=== PATIENT | male | born 1950 | race Caucasian/White ===

== ENCOUNTER 2017-10-23 10:37 | Inpatient (IN) | payer OTHER ==
[~2017-10-23] VITALS: Ht 182.9 cm; Wt 111.9 kg
[~2017-10-23 10:37] MED LIST: AMLODIPINE-BEN1 EACH PO; ASPIRIN325 MG PO; CIMETIDINE400 MG PO; Cipro PO; DORYX50 MG PO; ELIQUIS5 MG PO; METOPROLOL TART50 MG PO; Percocet 5/325,Endoc PO; TAGAMET300 MG PO; VICODIN,LORT1 TABLET PO; Vicodin,Norco 5/325 PO
[2017-10-23 11:07] LABS: HEMATOCRIT 46.7 % (38.0-50.0); HEMOGLOBIN 16.5 G/DL (12.5-16.6); MCH 32.7 PG (29.0-34.0); MCHC 35.3 G/DL (30.0-36.0); MCV 92.7 FL (86-99); PLATELET COUNT 61 K/uL (156-360); RBC DIS.WIDTH-CV 12.3 % (11.8-14.6); RED BLOOD COUNT 5.04 M/uL (4.00-5.50); WHITE BLOOD COUNT 6.4 K/uL (4.1-10.2)
[2017-10-23 11:18] LABS: CHLORIDE 103 mEq/L (99-109); POTASSIUM 4.2 mEq/L (3.7-5.4); SODIUM 137 mEq/L (136-147)
[2017-10-23 11:19] LABS: GLUCOSE 271 mg/dL (70-99)
[2017-10-23 11:23] LABS: CREATININE 1.1 mg/dL (0.6-1.3); GFR ESTIMATE (CALCULATED) > 59 mL/min/ (58.99-99999)
[2017-10-23 11:24] LABS: UREA NITROGEN (BUN) 16 mg/dL (9-23)
[2017-10-23 11:27] LABS: TROP-I INTERPRETATION NEGATIVE; TROPONIN-I 0.02 ng/mL (0.0-0.30)
[2017-10-23 13:30] LABS: HDL CHOLESTEROL 34 MG/DL (Desirable>=40); LDL CHOLESTEROL 120 mg/dL (Desirable<100); NON-HDL CHOLESTEROL 154 mg/dL (Desirable<160); TOTAL CHOLESTEROL 188 mg/dL (Desirable<200); TRIGLYCERIDES 170 MG/DL (Normal: <150)
[2017-10-23 16:19] VITALS: BP 141/90
[2017-10-23 18:49] VITALS: BP 129/85
[2017-10-23 19:18] LABS: TROP-I INTERPRETATION POSITIVE; TROPONIN-I 1.23 ng/mL (0.0-0.30)
[2017-10-23 22:01] VITALS: BP 130/71
[2017-10-24 00:52] LABS: TROP-I INTERPRETATION POSITIVE; TROPONIN-I 1.07 ng/mL (0.0-0.30)
[2017-10-24 03:45] VITALS: BP 128/69
[2017-10-24 06:28] LABS: HEMATOCRIT 45.3 % (38.0-50.0); HEMOGLOBIN 15.4 G/DL (12.5-16.6); MCH 32.5 PG (29.0-34.0); MCV 95.6 FL (86-99); PLATELET COUNT 53 K/uL (156-360); RBC DIS.WIDTH-CV 12.8 % (11.8-14.6); RBC DIS.WIDTH-SD 45.7 % (39-53); RED BLOOD COUNT 4.74 M/uL (4.00-5.50); WHITE BLOOD COUNT 5.5 K/uL (4.1-10.2)
[2017-10-24 06:30] LABS: TROP-I INTERPRETATION POSITIVE; TROPONIN-I 0.78 ng/mL (0.0-0.30)
[2017-10-24 08:03] VITALS: BP 164/74
[2017-10-24] MEDS ORDERED: GLIPIZIDE XL10 MG PO (09:15)
[2017-10-24] MEDS ORDERED: AZATHIOPRINE50 MG PO (09:16)
[2017-10-24] MEDS ORDERED: PREDNISONE2.5 MG PO (09:16)
[2017-10-24] MEDS ORDERED: PRINIVIL10 MG PO (09:17)
[2017-10-24 11:10] VITALS: BP 144/93
[2017-10-24 16:54] VITALS: BP 171/91
[2017-10-24 19:46] VITALS: BP 166/67
[2017-10-25 03:19] VITALS: BP 162/92
[2017-10-25 05:49] LABS: BASOPHIL (%) 0.6 % (0-1); EOSINOPHIL (%) 1.5 % (0-5); EOSINOPHIL COUNT 0.1 K/uL (0-0.3); HEMATOCRIT 44.9 % (38.0-50.0); HEMOGLOBIN 15.3 G/DL (12.5-16.6); IMMATURE GRANULOCYTE (%) 0.3 % (0.0-0.7); LYMPHOCYTE (%) 11.8 % (15-42); LYMPHOCYTE COUNT 0.8 K/uL (1.0-2.8); MCH 31.9 PG (29.0-34.0); MCHC 34.1 G/DL (30.0-36.0); MCV 93.7 FL (86-99); MONOCYTE (%) 7.5 % (3-12); MONOCYTE COUNT 0.5 K/uL (0-0.8); NEUTROPHIL (%) 78.3 % (45-76); NEUTROPHIL COUNT 5.1 K/uL (1.8-6.4); PLATELET COUNT 58 K/uL (156-360); RBC DIS.WIDTH-CV 12.3 % (11.8-14.6); RED BLOOD COUNT 4.79 M/uL (4.00-5.50); WHITE BLOOD COUNT 6.5 K/uL (4.1-10.2)
[2017-10-25 06:22] LABS: ALBUMIN 3.7 G/DL (3.2-4.8); ALKALINE PHOSPHATASE 41 IU/L (3-129); ALT (GPT) 9 IU/L (3-49); AST (GOT) 13 IU/L (2-34); CHLORIDE 102 MEQ/L (99-109); CREATININE 0.9 MG/DL (0.6-1.3); GFR ESTIMATE (CALCULATED) > 59 mL/min/ (58.99-99999); GLUCOSE 174 mg/dL (70-99); POTASSIUM 3.5 MEQ/L (3.7-5.4); SODIUM 135 MEQ/L (136-147); TOTAL BILIRUBIN 2.6 MG/DL (0.0-1.0); TOTAL PROTEIN 6.2 G/DL (6.4-8.3); UREA NITROGEN (BUN) 18 mg/dL (9-23)
[2017-10-25 07:05] VITALS: BP 162/88
[2017-10-25 19:50] VITALS: BP 156/89
[2017-10-26 00:13] VITALS: BP 129/86
[2017-10-26 04:44] VITALS: BP 139/96
[2017-10-26 05:17] LABS: BASOPHIL (%) 0.7 % (0-1); EOSINOPHIL (%) 2.3 % (0-5); EOSINOPHIL COUNT 0.1 K/uL (0-0.3); HEMATOCRIT 45.1 % (38.0-50.0); HEMOGLOBIN 15.7 G/DL (12.5-16.6); IMMATURE GRANULOCYTE (%) 0.3 % (0.0-0.7); LYMPHOCYTE (%) 13.9 % (15-42); LYMPHOCYTE COUNT 0.9 K/uL (1.0-2.8); MCH 32.9 PG (29.0-34.0); MCHC 34.8 G/DL (30.0-36.0); MCV 94.5 FL (86-99); MONOCYTE (%) 8.4 % (3-12); MONOCYTE COUNT 0.5 K/uL (0-0.8); NEUTROPHIL (%) 74.4 % (45-76); NEUTROPHIL COUNT 4.5 K/uL (1.8-6.4); PLATELET COUNT 63 K/uL (156-360); RBC DIS.WIDTH-CV 12.5 % (11.8-14.6); RBC DIS.WIDTH-SD 43.5 % (39-53); RED BLOOD COUNT 4.77 M/uL (4.00-5.50); WHITE BLOOD COUNT 6.1 K/uL (4.1-10.2)
[2017-10-26 05:47] LABS: ALBUMIN 3.6 G/DL (3.2-4.8); ALKALINE PHOSPHATASE 40 IU/L (3-129); ALT (GPT) 8 IU/L (3-49); AST (GOT) 12 IU/L (2-34); CHLORIDE 103 MEQ/L (99-109); GFR ESTIMATE (CALCULATED) > 59 mL/min/ (58.99-99999); GLUCOSE 162 mg/dL (70-99); SODIUM 136 MEQ/L (136-147); TOTAL BILIRUBIN 2.4 MG/DL (0.0-1.0); TOTAL PROTEIN 6.1 G/DL (6.4-8.3); UREA NITROGEN (BUN) 16 mg/dL (9-23)
[2017-10-26 07:15] VITALS: BP 137/100
[2017-10-26] MEDS ORDERED: CLOPIDOGREL75 MG PO (07:55)
[2017-10-26] MEDS ORDERED: ASPIR-LOW81 MG PO (07:55)
== END 2017-10-26 10:10 | disposition home or self-care (01) | DRG 249 ==
LOC: EME 10:37 → 4EAST 12:42 → EDOF 12:42 → ENRESERV 12:45 → 4EAST 16:03 → ENPENDDIS 10-26 → 4EAST 10-26 10:10
PROVIDERS: Emergency Medicine; Hospitalist; Internal Medicine; Nurse Practitioner Adult Health
PROC: 02703DZ Dilation of Coronary Artery, One Artery with Intraluminal Device, Percutaneous Approach (ICD-10-PCS; principal; 2017-10-25)
PROC: B2151ZZ Fluoroscopy of Left Heart using Low Osmolar Contrast (ICD-10-PCS; principal; 2017-10-25)
PROC: 4A023N7 Measurement of Cardiac Sampling and Pressure, Left Heart, Percutaneous Approach (ICD-10-PCS; principal; 2017-10-25)
PROC: B2111ZZ Fluoroscopy of Multiple Coronary Arteries using Low Osmolar Contrast (ICD-10-PCS; principal; 2017-10-25)
DX: I21.4 Non-ST elevation (NSTEMI) myocardial infarction (principal); I25.110 Atherosclerotic heart disease of native coronary artery with unstable angina pectoris; I16.0 Hypertensive urgency; E78.5 Hyperlipidemia, unspecified; I11.9 Hypertensive heart disease without heart failure; I48.2 Chronic atrial fibrillation; D47.3 Essential (hemorrhagic) thrombocythemia; E11.9 Type 2 diabetes mellitus without complications; K21.9 Gastro-esophageal reflux disease without esophagitis; E66.9 Obesity, unspecified; R20.0 Anesthesia of skin; R94.5 Abnormal results of liver function studies; Z79.01 Long term (current) use of anticoagulants; Z79.82 Long term (current) use of aspirin; Z87.891 Personal history of nicotine dependence; Z79.52 Long term (current) use of systemic steroids; Z82.49 Family history of ischemic heart disease and other diseases of the circulatory system; Z68.33 Body mass index [BMI] 33.0-33.9, adult
CPT/HCPCS: 71020; 80048; 80053; 80061; 82948; 83880; 84484; 85025; 85027; 85347; 93005; 93306; 99281; 99284; C1725; C1769; C1874; C1887; J1644; J1815; J2060; J2250; J3010; J7030; J7500; J7512